=== PATIENT | male | born 1950 | race Caucasian/White ===

== ENCOUNTER 2018-07-03 10:40 | Emergency (ER) | payer MEDICARE, OTHER ==
[~2018-07-03] VITALS: Ht 177.8 cm; Wt 102.1 kg
[2018-07-03] MEDS ORDERED: IV NORMAL SALINE 500ML 500 ML IV ONE ×2 (11:00→12:15)
[2018-07-03] MEDS ORDERED: ONDANSETRON PF 4 MG/2 ML VIAL. IV ONE (11:00)
--- NOTE | 2018-07-03 11:02 | PHYS DOC ---
Adult General Chief Complaint Chief Complaint: vomiting HPI HPI 68-year-old male presenting the emergency department today with multiple episodes of vomiting this started this morning around 1 AM. He describes it is nonbilious and nonbloody. He has a cramping abdominal pain but reports this is very minimal. He feels like his stomach is just empty. He denies having a history of abdominal surgeries. He denies chest pain shortness of breath. No alleviating or exacerbating factors. No recent suspicious food intake. No recent sick contacts. PMH: HLD, HTN PSH: denies SH: denies smoking, occasionally drinks, denies drug use Review of systems is negative for chest pain shortness of breath headache neck stiffness confusion cyanosis or lethargy. All other review of systems is negative unless otherwise noted in history of present illness. ED course: 60-year-old male presenting the emergency department today with vomiting and a cramping abdominal pain. On arrival he is afebrile with a normal heart rate. On examination he is well appearing with clear lungs bilaterally. His abdomen is soft and nondistended nontender palpation without rebound tenderness or guarding. Labs showed leukocytosis of 16,000, hemoglobin is 17.9. Banded neutrophils present. Chemistry panel otherwise shows mild elevated calcium with mild elevation in bilirubin. BUN is elevated. Urinalysis and influenza are unremarkable. CT the abdomen pelvis shows signs of small bowel obstruction in the left midabdomen at the proximal jejunum. I spoke with Dr. Jorgensen at approximately 1252 and we will transfer the patient to [facility] for further evaluation treatment and care. Dr. Edward excepts the patient for admission at 1257. EMS was called and the patient was transferred in stable condition. The patient was nothing by mouth in the emergency department. The patient did not have any vomiting while in the emergency department, his nausea has improved since being in the emergency department indicating IV fluids and antiemetic therapy. Thus we did not need to place an NG tube at this time. Review of Systems Review of Systems SEE ABOVE. Allergies Allergies Allergies Coded Allergies Type Severity Reaction Last Updated Verified No Known Drug Allergies 07/03/18 No Physical Exam Physical Exam SEE ABOVE Constitutional: Well developed, well nourished, no acute distress, non-toxic appearance. HENT: Normocephalic, atraumatic, bilateral external ears normal, oropharynx moist, no oral exudates, nose normal. [] Eyes: PERRLA, EOMI, conjunctiva normal, no discharge. Neck: Normal range of motion, no tenderness, supple, no stridor. [] Cardiovascular:Heart rate regular rhythm, no murmur Lungs & Thorax: Bilateral breath sounds clear to auscultation [] Abdomen: Bowel sounds normal, soft, no tenderness, no masses, no pulsatile masses. Skin: Warm, dry, no erythema, no rash. [] Back: No tenderness, no CVA tenderness. [] Extremities: No tenderness, no cyanosis, no clubbing, ROM intact, no edema. Neurologic: Alert and oriented X 3, normal motor function, normal sensory function, no focal deficits noted. [] Psychologic: Affect normal, judgement normal, mood normal. EKG EKG [] Radiology/Procedures Radiology/Procedures [] Course & Med Decision Making Course & Med Decision Making Pertinent Labs and Imaging studies reviewed. (See chart for details) [] Dragon Disclaimer Dragon Disclaimer This electronic medical record was generated, in whole or in part, using a voice recognition dictation system. Departure Departure: Impression: Primary Impression: Nausea & vomiting Additional Impression: Small bowel obstruction Disposition: 02 XFER [facility]OSP ([facility]) Condition: STABLE Referrals: PCP,UNKNOWN (PCP) Problem Qualifiers BRENDAN VOSS MD Jul 03, 2018 11:02
[2018-07-03 11:13] LABS: BASO # 0.1 x10^3/uL (0.0-0.2); BASO % 1 % (0-3); EOS % 0 % (0-3); HEMATOCRIT 52.5 % (39.0-53.0); HEMOGLOBIN 17.9 g/dL (13.0-17.5); LYMPH # 0.6 x10^3/uL (1.0-4.8); LYMPH % 4 % (24-48); MEAN CORPUSCULAR HEMOGLOBIN 31 pg (25-35); MEAN CORPUSCULAR HGB CONC 34 g/dL (31-37); MEAN CORPUSCULAR VOLUME 89 fL (79-100); MONO # 0.8 x10^3/uL (0.0-1.1); MONO % 5 % (0-9); NEUT # 15.2 x10^3uL (1.8-7.7); NEUT % 91 % (31-73); PLATELET COUNT 196 x10^3/uL (140-400); RED BLOOD COUNT 5.88 x10^6/uL (4.30-5.70); RED CELL DISTRIBUTION WIDTH 13.6 % (11.5-14.5); WHITE BLOOD COUNT 16.7 x10^3/uL (4.0-11.0)
[2018-07-03] MEDS ORDERED: IOHEXOL 300 MG/ML 75 ML VIAL. IV ONE (11:15)
[2018-07-03 11:25] LABS: ALBUMIN 4.5 g/dL (3.4-5.0); CALCIUM 10.2 mg/dL (8.5-10.1); CREATININE 1.3 mg/dL (0.7-1.3); DIRECT BILIRUBIN 0.3 mg/dL (0.0-0.2); GFR 54.9; POTASSIUM 4.6 mmol/L (3.5-5.1); TOTAL BILIRUBIN 1.5 mg/dL (0.2-1.0); TOTAL PROTEIN 8.1 g/dL (6.4-8.2)
[2018-07-03 11:31] LABS: INFLUENZA A PATIENT NEGATIVE (NEGATIVE); INFLUENZA B PATIENT NEGATIVE (NEGATIVE)
--- NOTE | 2018-07-03 11:33 | EKG ---
[address] [address] Test Date: 2018-07-03 Test Time: 11:07:07 Pat Name: ALINA TAYLOR Department: Room: Gender: M Weed Sprayer: : 1950 Requested By: BRENDAN VOSS Order Number: [id number] Reading MD: Aung Pride MD Measurements Intervals [place] Rate: 77 P: 31 NC: 200 QRS: -17 QRSD: 82 T: 18 QT: 354 QTc: 402 Interpretive Statements SINUS RHYTHM ATRIAL PREMATURE COMPLEX(ES) NON-SPECIFIC ST/T CHANGES Electronically Signed On 07-09-2018 13:55:22 CDT by Aung Pride MD
--- NOTE | 2018-07-03 12:15 | RAD ---
CT of the abdomen and pelvis with contrast, 07/03/2018: HISTORY: Flulike symptoms, nausea and vomiting Multidetector CT imaging was performed following an IV bolus injection of iodinated contrast material. No oral contrast material was administered for this study. There is mild linear atelectasis and/or scarring in the lung bases. A 4 mm noncalcified nodule is seen posterolaterally in the right lower lobe on image 9 of series #2. A slightly smaller nodule is present laterally in the left lower lobe as seen on image 12 of series #2. No pleural fluid is evident. The liver is of lower than normal density in a diffuse pattern compatible with fatty change. The gallbladder is unremarkable. No pancreatic abnormality is seen. The spleen is of normal size. There is mild bilateral renal cortical scarring. Single small low-density lesions in both kidneys are compatible with cysts. There is a 9 mm nonobstructing intrarenal calculus on the left. The renal collecting systems and ureters are unremarkable. There is slight nonspecific nodular thickening of both adrenal glands. Mild aortoiliac calcific plaquing is present without evidence of aneurysm. No abdominal or pelvic adenopathy is seen. The prostate gland is mildly enlarged. There is mild diffuse thickening of the bladder long likely secondary to the prostatic enlargement. The stomach and proximal duodenum are mildly distended with fluid. The proximal jejunum is distended with gas and stool-like material (pseudofeces sign). There is a transition point in the left mid abdomen laterally with mild mural thickening involving the small bowel at this level. The distal small bowel loops are of normal caliber. Colonic diverticula are present, primarily in the sigmoid region. No paracolonic inflammatory process is seen. There is gas and stool in scattered portions of the colon in a nonspecific pattern. The appendix is visualized and shows no abnormality. No free fluid or free air is evident in the abdomen or pelvis. There are moderate scattered degenerative changes in the spine. IMPRESSION: 1. Evidence of small bowel obstruction in the left midabdomen at the proximal jejunal level. This may be due to an adhesion or internal hernia. 2. Hepatic steatosis. 3. Nonobstructing left intrarenal calculus. 4. Nonspecific prostatic enlargement. 5. Sigmoid diverticulosis. 6. Tiny noncalcified basilar pulmonary nodules. Depending on the patient's risk factors, CT follow-up may be indicated. PQRS Compliance Statement: One or more of the following individualized dose reduction techniques were utilized for this examination: 1. Automated exposure control 2. Adjustment of the mA and/or kV according to patient size 3. Use of iterative reconstruction technique Electronically signed by: Vasile Hanna MD (07/03/2018 12:12 PM) [facility]
[2018-07-03 12:25] LABS: BACTERIA,URINE 0 /HPF (0-FEW); BILIRUBIN,URINE SMALL (NEG); CLARITY,URINE CLEAR; COLOR,URINE BROWN; GLUCOSE,URINE NEG (NEG); NITRITE,URINE NEG (NEG); RBC,URINE 0 /HPF (0-2); SQUAMOUS EPITHELIAL CELL,UR OCC /LPF; UROBILINOGEN,URINE 0.2 mg/dL (0.2 mg/dL); WBC,URINE 0 /HPF (0-4)
[2018-07-03 12:52] LABS: % ATYL 1 % (0-0); % BANDS 11 % (0-9); % LYMPHS 4 % (24-48); % MONOS 5 % (0-10); % SEGS 79 % (35-66); PLT ESTIMATE ADEQUATE (ADEQUATE)
[2018-07-03 12:53] LABS: STOMATOCYTES OCC; TOXIC GRANULATION PRESENT
[2018-07-03 14:55] VITALS: BP 140/75
--- NOTE | 2018-07-04 12:29 | EKG ---
[address] [address] Test Date: 2018-07-03 Test Time: 11:15:50 Pat Name: ALINA TAYLOR Department: Room: Gender: M Gas Station Manager: : 1950 Requested By: BRENDAN VOSS Order Number: [id number] Reading MD: Aung Pride MD Measurements Intervals [place] Rate: 81 P: 22 [place]: 200 QRS: -19 QRSD: 96 T: 24 QT: 374 QTc: 440 Interpretive Statements SINUS RHYTHM ATRIAL PREMATURE COMPLEX(ES) NON-SPECIFIC ST/T CHANGES Electronically Signed On 07-09-2018 13:55:29 CDT by Aung Pride MD
== END 2018-07-03 15:05 | disposition short-term general hospital (02) ==
LOC: ER 10:40
DX: K56.609 Unspecified intestinal obstruction, unspecified as to partial versus complete obstruction (principal); R11.2 Nausea with vomiting, unspecified; D72.829 Elevated white blood cell count, unspecified; R79.89 Other specified abnormal findings of blood chemistry; I10 Essential (primary) hypertension; E78.5 Hyperlipidemia, unspecified
CPT/HCPCS: 36415; 74177; 80048; 80076; 81001; 83690; 84484; 85007; 85025; 87804; 93005; 96361; 96374; 99285; J2405; J7040; Q9967